=== PATIENT | male | born 1975 | race African-American/Black ===

== ENCOUNTER 2022-03-16 06:46 | Day surgery (SDC) | payer OTHER ==
[~2022-03-16] VITALS: Ht 172.7 cm; Wt 81.0 kg
[~2022-03-16 06:46] MED LIST: HYDROmorphone 2 MG/ML INJ. IVP PRN; IV RINGERS,LACTATED 1000ML 1,000 ML IV SCH; MORPHINE SULFATE 2 MG/ML INJ. IVP PRN; PROCHLORPERAZINE 10 MG/2 ML VIAL. IVP PRN; fentaNYL PF VIAL 100 MCG/2 ML VIAL IVP PRN
[2022-03-16] MEDS ORDERED: LIDOCAINE 1% Multi-Dose 20 ML VIAL. ONE (06:59)
[2022-03-16] MEDS ORDERED: EPINEPHrine VIAL 30 MG/30 ML VIAL ONE (07:00)
[2022-03-16] MEDS ORDERED: BUPIVACAINE MPF 0.5% 30 ML VIAL. ONE (07:00)
[2022-03-16 07:15] VITALS: BP 130/87
[2022-03-16] MEDS ORDERED: PROPOFOL 10 MG/ML (20ML) VIAL. IV ONE (07:33)
[2022-03-16] MEDS ORDERED: fentaNYL PF VIAL 250 MCG/5 ML VIAL ONE (07:33)
[2022-03-16] MEDS ORDERED: MIDAZOLAM HCL/PF 2 MG/2 ML VIAL. ONE (07:33)
[2022-03-16] MEDS ORDERED: ONDANSETRON PF 4 MG/2 ML VIAL. ONE (07:34)
[2022-03-16] MEDS ORDERED: DEXAMETHASONE SOD PHOS 4 MG/ML VIAL ONE (07:34)
[2022-03-16] MEDS ORDERED: LIDOCAINE 2% PF 5 ML VIAL. ONE (07:34)
--- NOTE | 2022-03-16 07:46 | DISCH ---
DISCHARGE INSTRUCTIONS Condition on Discharge Condition on Discharge: Stable Activity After Discharge Activity Instructions for Disc: No restrictions, Activity as tolerated Bathing Instructions: Shower-keep dressing dry Weight Bearing Status after Di: As tolerated Diet after Discharge Diet after Discharge: Regular Wound Incision Care Wound/Incision Care: Ice to area for comfort, Keep wound/cast CDI, Change dressing Other wound/incision instructi: change in 2 days Contacting the DRHeron after DC Call your doctor for: Concerns you may have Follow-Up Follow up with: Jimmy in 2 wks CHANDAN FRYE II, MD March 16, 2022 07:46
--- NOTE | 2022-03-16 07:53 | PDOC4 ---
Operative Note Operative Note Date of procedure: 03/16/2022 Surgeon: Jan Frye [employer]ivery Car Driver: Jose Antonio Caruso Preoperative diagnosis: Right knee medial meniscus tear Postoperative diagnosis: Same Procedure performed: Arthroscopic partial medial meniscectomy Anesthesia: General Findings: 1. Patellofemoral cartilage was unremarkable 2. Medial compartment demonstrated no cartilage wear 3. He had a complex tear at the inner portion of his medial meniscus at the junction of the posterior aspect and body. 4. He had softening of his lateral tibial plateau posteromedially otherwise lateral compartment cartilage was without pathology 5. Cruciates were intact and unremarkable Tourniquet time: less than 20min Blood loss: 2 ml Complications: none Reason for procedure: Patient is a very pleasant 46-year-old gentleman who was referred to see me in my outpatient orthopedic surgery clinic for complaints of knee pain and catching, please see my outpatient note for further details. Clinical and radiographic examination including MRI were consistent with the above preoperative diagnosis and after discussion of the risk benefits and alternatives the patient wished to proceed. Description of procedure: Patient was greeted in the preoperative area by myself or the correct extremity was verified and marked. Is taken the operative suite and antibiotics were started as she was brought back. Once in the operating room, he was transferred gently supine to the operating room table and secured to bed with all pressure points padded and underwent successful induction of a general anesthetic. A padded bump was placed at his hip and across the foot of the bed to maintain his knee at 90 degrees passively. Examination under anesthesia demonstrated range of motion was 0 to 140 degrees, knee was stable to varus and valgus in extension and 30 degrees of flexion, negative Mark. Nonsterile tourniquet was applied to his right thigh. We proceeded to prep and drape right lower extremity our usual sterile fashion and conducted our standard preoperative timeout. After this, Esmarch was used to exsanguinate the extremity and tourniquet was insufflated to 250 mmHg. I palpated marked surface anatomy and tricia lines for my planned portals. I then incised skin with a scalpel in my anterolateral portal and introduced the blunt arthroscopic trocar into the suprapatellar pouch followed by the camera. I then conducted my diagnostic arthroscopy with above-noted findings and upon entering the medial compartment used a spinal needle to localize an anteromedial portal and introduced the probe and continued on with my diagnostic arthroscopy. I then redirected my attention to his medial compartment and used a combination of biter and shaver to trim his complex meniscus tear back to stable edges. After this, I placed the camera and shaver the suprapatellar pouch and performed repeated vigorous palpation and aspiration through the shaver to try to remove any loose debris. I then removed all excess arthroscopic fluid and the arthroscopic instrumentation and portals were closed with simple interrupted 3-0 nylon. The area was cleansed and dried and a soft sterile bulky dressing was applied followed by an Jeffrey wrap. Postoperative plan is to discharge patient home, weightbearing as tolerated. He will be off work for 1 week and I would anticipate placing him on profile for 3 months. JAN FRYE II, MD March 16, 2022 07:53
[2022-03-16] MEDS ORDERED: LIDOCAINE 1% Multi-Dose 20 ML VIAL. INJ ONE (08:09)
[2022-03-16] MEDS ORDERED: BUPIVACAINE MPF 0.5% 30 ML VIAL. IJ ONE (08:09)
[2022-03-16 09:07] VITALS: BP 123/92
== END 2022-03-16 09:33 | disposition home or self-care (01) ==
LOC: SURG 06:46
PROVIDERS: ATTEND Orthopaedic Surgery Sports Medicine
DX: S83.231A Complex tear of medial meniscus, current injury, right knee, initial encounter (principal); Z79.899 Other long term (current) drug therapy; Z98.890 Other specified postprocedural states; Z72.89 Other problems related to lifestyle; X58.XXXA Exposure to other specified factors, initial encounter; Y93.89 Activity, other specified; Y92.89 Other specified places as the place of occurrence of the external cause; Y99.8 Other external cause status
CPT/HCPCS: 29881; A4930; J0171; J0690; J1100; J2250; J2405; J2704; J3010; J3490; A4452; A6454